=== PATIENT | female | born 1995 | race Caucasian/White ===

== ENCOUNTER 2017-01-05 18:03 | Emergency (ER) | payer OTHER ==
[~2017-01-05] VITALS: Ht 162.6 cm; Wt 64.0 kg
[~2017-01-05 18:03] MED LIST: KLONOPIN0.5 M1 PO; NO MEDICATIONS
[2017-01-05] MEDS ORDERED: ULTRAM50 MG PO (18:30)
[2017-01-05] MEDS ORDERED: MOTRIN800 MG PO (18:30)
[2017-01-05 19:15] VITALS: BP 135/98
== END 2017-01-05 19:16 | disposition home or self-care (01) ==
LOC: EME 18:03
DX: L05.91 Pilonidal cyst without abscess (principal); F41.9 Anxiety disorder, unspecified
CPT/HCPCS: 99281; 99284